=== PATIENT | female | born 2000 | race Hispanic/Latino ===

== ENCOUNTER 2018-12-17 20:45 | Emergency (ER) | payer MEDICAID, OTHER ==
[2018-12-17 21:13] LABS: APPEARANCE,URINE Clear (CLEAR); BILIRUBIN,URINE Negative (NEGATIVE); COLOR,URINE Yellow (YELLOW); GLUCOSE, URINE (UA) >=1000 mg/dL (NEGATIVE); KETONES,URINE Negative (NEGATIVE); LEUKOCYTE ESTERASE ,URINE Moderate (NEGATIVE); NITRATE,URINE Negative (NEGATIVE); OCCULT BLOOD,URINE Trace (NEGATIVE); PROTEIN,URINE Negative (NEGATIVE)
[2018-12-17 21:16] LABS: HCG,QUAL RESULT NEGATIVE (NEGATIVE)
[2018-12-17 21:27] LABS: BACTERIA,URINE Few /HPF (None Seen)
[2018-12-17 21:28] LABS: SQUAMOUS EPITHELIAL CELL,UR Few /HPF (0-2)
[2018-12-17 21:37] LABS: BASOPHILS % (AUTO) 0.3 % (0.0-5.0); EOSINOPHILS % (AUTO) 1.3 % (0.0-8.0); HEMATOCRIT 38.9 % (36-48); LYMPHOCYTES % (AUTO) 25.7 % (21.0-51.0); MEAN CORPUSCULAR HEMOGLOBIN 24.6 pg (27.0-33.0); MEAN CORPUSCULAR HGB CONC 32.9 g/dL (32.0-36.0); MEAN CORPUSCULAR VOLUME 74.8 fL (80-100); MONOCYTES % (AUTO) 4.2 % (3.0-13.0); NEUTROPHILS % (AUTO) 68.5 % (40.0-77.0); PLATELET COUNT (AUTO) 164 K/uL (130-400); RED CELL DISTRIBUTION WIDTH 14.8 % (11.0-15.5); WHITE BLOOD COUNT (AUTO) 9.5 K/uL (4.8-10.8)
[2018-12-17 22:01] LABS: ALBUMIN 3.3 g/dL (3.5-5.0); BILIRUBIN,DIRECT 0.1 mg/dL (0.0-0.3); BILIRUBIN,TOTAL 0.3 mg/dL (0.2-1.0); TOTAL PROTEIN, SERUM 7.4 g/dL (6.0-8.3)
== END 2018-12-17 23:48 | disposition home or self-care (01) ==
LOC: EDH 20:45
DX: E11.65 Type 2 diabetes mellitus with hyperglycemia (principal); K76.0 Fatty (change of) liver, not elsewhere classified; R93.2 Abnormal findings on diagnostic imaging of liver and biliary tract; R94.5 Abnormal results of liver function studies
CPT/HCPCS: 36415; 76705; 80048; 80076; 81001; 81025; 85025

== ENCOUNTER 2023-10-19 12:06 | Emergency (ER) | payer OTHER ==
[~2023-10-19] VITALS: Ht 170.2 cm; Wt 112.5 kg
[2023-10-19 13:16] LABS: BASOPHILS # (AUTO) 0.03 K/uL (0.00-0.20); BASOPHILS % (AUTO) 0.3 % (0.0-5.0); EOSINOPHILS # (AUTO) 0.04 K/uL (0.00-0.70); EOSINOPHILS % (AUTO) 0.4 % (0.0-8.0); HEMATOCRIT 36.3 % (36-48); IMMATURE GRANULOCYTE ABSOLUTE 0.04 K/uL (0-1); LYMPHOCYTES # (AUTO) 1.8 K/uL (1.0-4.8); LYMPHOCYTES % (AUTO) 16.3 % (21.0-51.0); MEAN CORPUSCULAR HEMOGLOBIN 21.2 pg (27.0-33.0); MEAN CORPUSCULAR HGB CONC 30.6 g/dL (32.0-36.0); MEAN CORPUSCULAR VOLUME 69.3 fL (79-99); MONOCYTES # (AUTO) 0.5 K/uL (0.1-1.0); MONOCYTES % (AUTO) 4.3 % (3.0-13.0); NEUTROPHILS # (AUTO) 8.5 K/uL (1.8-7.7); NEUTROPHILS % (AUTO) 78.3 % (40.0-77.0); PLATELET COUNT (AUTO) 300 K/uL (130-400); RED BLOOD CELL COUNT(AUTO) 5.24 MIL/uL (4.00-5.50); RED CELL DISTRIBUTION WIDTH 16.2 % (11.0-15.5); WHITE BLOOD COUNT (AUTO) 10.8 K/uL (4.8-10.8)
[2023-10-19 13:50] LABS: ALBUMIN 3.5 g/dL (3.5-5.0); BILIRUBIN,TOTAL 0.2 mg/dL (0.2-1.0); CREATININE 0.8 mg/dL (0.5-1.5); TOTAL PROTEIN, SERUM 7.9 g/dL (6.0-8.3)
[2023-10-19 15:34] LABS: APPEARANCE,URINE CLOUDY (CLEAR); BILIRUBIN,URINE NEGATIVE (NEGATIVE); COLOR,URINE COLORLESS (YELLOW); GLUCOSE, URINE (UA) >=1000 mg/dL (NEGATIVE); KETONES,URINE NEGATIVE (NEGATIVE); LEUKOCYTE ESTERASE ,URINE NEGATIVE Leu/uL (NEGATIVE); NITRATE,URINE NEGATIVE (NEGATIVE); OCCULT BLOOD,URINE LARGE (NEGATIVE); PH,URINE 5.5 (5.0-8.0); PROTEIN,URINE NEGATIVE (NEGATIVE); UROBILINOGEN,URINE 0.2 mg/dL (0.2-1.0)
[2023-10-19 15:39] LABS: MUCUS,URINE RARE LPF (None Seen); RBC,URINE TNTC /HPF (0-1); SQUAMOUS EPITHELIAL CELL,UR FEW /HPF (0-2); WBC,URINE 26-50 /HPF (0-1)
[2023-10-19] MEDS ORDERED: CEPH500B PO (17:10)
[2023-10-19] MEDS: CEFTRIAXONE 1G VIAL IM ONE (17:41)
[2023-10-19 18:22] VITALS: BP 126/74; PULSE 74; RESP 16; O2SAT 98
== END 2023-10-19 18:07 | disposition home or self-care (01) ==
LOC: EDH 12:06
DX: N30.91 Cystitis, unspecified with hematuria (principal); I10 Essential (primary) hypertension; E11.9 Type 2 diabetes mellitus without complications; Z98.890 Other specified postprocedural states
CPT/HCPCS: 99283; 80053; 85025; 87088; 81001; 81025; 36415; 96372; J0696

== ENCOUNTER 2024-08-13 07:51 | Day surgery (SDC) | payer OTHER ==
[2024-08-09 12:33] LABS: BASOPHILS # (AUTO) 0.04 K/uL (0.00-0.20); BASOPHILS % (AUTO) 0.4 % (0.0-5.0); EOSINOPHILS # (AUTO) 0.13 K/uL (0.00-0.70); EOSINOPHILS % (AUTO) 1.4 % (0.0-8.0); HEMATOCRIT 40.1 % (36-48); IMMATURE GRANULOCYTE ABSOLUTE 0.03 K/uL (0-1); LYMPHOCYTES # (AUTO) 2.6 K/uL (1.0-4.8); LYMPHOCYTES % (AUTO) 28.9 % (21.0-51.0); MEAN CORPUSCULAR HEMOGLOBIN 22.9 pg (27.0-33.0); MEAN CORPUSCULAR HGB CONC 31.2 g/dL (32.0-36.0); MEAN CORPUSCULAR VOLUME 73.3 fL (79-99); MONOCYTES # (AUTO) 0.5 K/uL (0.1-1.0); NEUTROPHILS # (AUTO) 5.7 K/uL (1.8-7.7); PLATELET COUNT (AUTO) 254 K/uL (130-400); RED BLOOD CELL COUNT(AUTO) 5.47 MIL/uL (4.00-5.50); RED CELL DISTRIBUTION WIDTH 15.7 % (11.0-15.5)
[2024-08-09 13:00] VITALS: BP 121/62; PULSE 85; RESP 18; TEMP 98.4
[~2024-08-13] VITALS: Ht 170.2 cm; Wt 112.9 kg
[2024-08-13] VITALS (13 sets, daily range): BP systolic 101–110; BP diastolic 52–63; PULSE 61–75; RESP 15–18; TEMP 97.5–98
[~2024-08-13 07:51] MED LIST: DOCU-280 PO; EMPA1TAB21 PO; ERGO500093 PO; IRON PO; LISI20TA24 PO; TIRZ10PE SQ; VIT C PO
[2024-08-13] MEDS ORDERED: LIDOCAINE PF 100MG/5ML (2%) SYRINGE 5ML ONE (08:31)
[2024-08-13] MEDS ORDERED: rocuRONium bROMide 10MG/1ML 5ML VL ONE (08:32)
[2024-08-13] MEDS ORDERED: FENTanyl CITRate PF 50 MCG/1 ML 2ML VIAL ONE (08:32)
[2024-08-13] MEDS ORDERED: MIDAZOLAM HCL 1 MG/ML 2ML VIAL ONE (08:32)
[2024-08-13] MEDS ORDERED: proPOFol 10 MG/ML 20ML VIAL IV ONE (08:32)
[2024-08-13] MEDS ORDERED: NEOSTIGMINE METHYLSULFATE 1MG/ML IV ONE (08:35)
[2024-08-13] MEDS ORDERED: ondanSETRON 4MG INJ ONE (08:35)
[2024-08-13] MEDS ORDERED: dexaMETHasone SOD PHOSPHATE 4 MG/ML 1ML VIAL ONE (08:35)
[2024-08-13] MEDS ORDERED: GLYCOPYRROLATE 0.2 MG/ML 5 ML VIAL ONE (08:35)
[2024-08-13] MEDS: ceFAZolin SODIUM 1 GM VIAL ONE (09:25)
[2024-08-13] MEDS: ceFAZolin SODIUM 2 GM VIAL ONE (09:25)
[2024-08-13] MEDS: 0.9%NACL 1000ML 1,000 ML IV ONE (09:26)
[2024-08-13] MEDS ORDERED: NORE0.3548 PO (09:29)
[2024-08-13] MEDS ORDERED: OMEG100033 PO (09:29)
[2024-08-13 09:33] LABS: CREATININE 0.8 mg/dL (0.5-1.0); POTASSIUM 3.6 mmol/L (3.5-5.1)
[2024-08-13] MEDS ORDERED: ketOROlac 30MG VIAL (30MG/ML) ONE (10:34)
[2024-08-13] MEDS: MEPERIDINE-PF 25 MG/ML SYG ONE (10:49)
[2024-08-13] MEDS ORDERED: IBUP-2088 PO (11:37)
--- NOTE | 2024-08-13 11:42 | OP ---
DATE OF PROCEDURE: 08/13/2024 PREOPERATIVE DIAGNOSES: * Menorrhagia. * Thickened endometrium. POSTOPERATIVE DIAGNOSES: * Menorrhagia. * Thickened endometrium. PROCEDURE: D and C with hysteroscopy. SURGEON: Simone Ferrera MD ANESTHESIA: General. COUNTS: Complete. COMPLICATIONS: None. DRAINS: None. SPECIMENS: Endometrial curettings. ESTIMATED BLOOD LOSS: Minimal. FINDINGS: * Examination under anesthesia revealed an external genitalia and vagina that were normal. The cervix was grossly normal as well. The uterus was retroflexed. No active bleeding today. * Hysteroscopic examination of the uterine cavity revealed it to be slightly enlarged, but regular in shape and contour. No polyps or fibroids. DESCRIPTION OF PROCEDURE: Under general anesthesia, the patient was scrubbed and draped in the usual dorsal lithotomy position. A weighted speculum was placed in the vagina and the cervix secured with tenaculum. The uterus was sounded to 10.5 cm. After minimal dilation, I was able to introduce the hysteroscope revealing the above described findings. At this point, the scope was removed and a sharp curettage performed yielding a scant amount of tissue, which was forwarded to pathology. No bleeding per the os upon completion of the case. The patient tolerated the procedure well without evidence of any complications. She was transferred to recovery following extubation. TID: [id number] RECEIPT: [id number]
--- NOTE | 2024-08-13 11:43 | NUR ---
FEMININE PAD WITH SCANT BLOOD, ABOUT 1 CC, WITNESSED BY PRIMARY NURSE AND MACKENZIE PEOPLES
== END 2024-08-13 11:52 | disposition home or self-care (01) ==
LOC: DAH 07:51
PROVIDERS: ATTEND Obstetrics & Gynecology
DX: N92.0 Excessive and frequent menstruation with regular cycle (principal); C54.1 Malignant neoplasm of endometrium; N83.201 Unspecified ovarian cyst, right side; I10 Essential (primary) hypertension; E11.9 Type 2 diabetes mellitus without complications; E66.9 Obesity, unspecified; Z68.39 Body mass index [BMI] 39.0-39.9, adult; Z82.49 Family history of ischemic heart disease and other diseases of the circulatory system; Z83.3 Family history of diabetes mellitus; Z82.3 Family history of stroke; Z79.899 Other long term (current) drug therapy; Z98.890 Other specified postprocedural states
CPT/HCPCS: 58558; 84703; 85025; 86850 ×2; 86900 ×2; 86901 ×2; 36415 ×2; 80048; 82948 ×2; 81025; 88305; J1100; A4600; A4663; J7030 ×2; A4351; J3010; J0690 ×2; J3490 ×2; J2003; J2250; J2704; J2405; J1885; J2710; J2175; A4930; A4215; A4223; A4213; A4222; A4221

== ENCOUNTER 2025-03-21 17:17 | Inpatient (IN) | payer OTHER ==
[~2025-03-21] VITALS: Ht 170.2 cm; Wt 110.3 kg
[~2025-03-21 17:17] MED LIST changes: +IBUP-2829 PO; +NORE0.3548 PO; +OMEG100033 PO
[2025-03-21 18:53] LABS: IMMATURE GRANULOCYTE ABSOLUTE 0.06 K/uL (0-1); NUCLEATED RED BLOOD CELLS 0.0 % (0.0-0.19); PLATELET COUNT (AUTO) 215 K/uL (130-400); RED BLOOD CELL COUNT(AUTO) 4.88 MIL/uL (4.00-5.50); RED CELL DISTRIBUTION WIDTH 17.3 % (11.0-15.5); WHITE BLOOD COUNT (AUTO) 11.8 K/uL (4.8-10.8)
[2025-03-21 19:02] LABS: HCG,QUALITATIVE URINE NEGATIVE (NEGATIVE)
[2025-03-21 19:07] LABS: CREATININE 0.7 mg/dL (0.5-1.0); GLOMERULAR FILTR. RATE CALC 121.0 mL/min (>90); GLUCOSE,RANDOM 107.0 mg/dL (70-105); SODIUM SERUM 136.0 mmol/L (136-145); UREA NITROGEN, BLOOD 14.0 mg/dL (7-18)
[2025-03-21 19:08] LABS: APPEARANCE,URINE CLEAR (CLEAR); GLUCOSE, URINE (UA) >=1000 mg/dL (NEGATIVE); LEUKOCYTE ESTERASE ,URINE 25 Leu/uL (NEGATIVE); NITRATE,URINE NEGATIVE (NEGATIVE); OCCULT BLOOD,URINE +- (TRACE) (NEGATIVE); SQUAMOUS EPITHELIAL CELL,UR FEW /HPF (0-2); YEAST,URINE BUDDING FEW /HPF (None Seen)
[2025-03-21 19:11] LABS: ASPARTATE AMINOTRANSFERASE 11.0 U/L (10-37); TOTAL PROTEIN, SERUM 7.6 g/dL (6.0-8.3)
--- NOTE | 2025-03-21 21:08 | ERN ---
General Chief Complaint: Abdominal Pain Stated Complaint: RLQ PAIN Time Seen by MD: 17:21 Time Seen by Midlevel: 17:21 Source: patient History of Present Illness Initial Comments 25-year-old female who presents to the emergency department due to right lower abdominal pain onset one week. [facility] seen [facility] and was diagnosed with a UTI and abdominal mass. She was initiated on antibiotics however states she does feel improvement. Patient has an MRI scheduled for tomorrow. However patient states the pain is worsening. PMHx DM, HTN, endometrial cancer Allergies: Coded Allergies: No Known Drug Allergies (Verified Allergy, 02/19/12) Home Meds Reported Medications Ibuprofen (Motrin/Advil) 600 Mg Tab, 1 TAB PO TID for pain for 10 Days, #30 TAB 0 Refills with food 08/13/24 Norethindrone (Mercedes) 0.35 Mg Tablet, 1 TAB PO DAILY for 28 Days, #28 TAB 0 Refills 08/13/24 [place]-3/Dha/Epa/Fish Oil (Fish Oil 1,000 mg Softgel) 1,000 Mg (120 Mg-180 Mg) Capsule, 1 CAP PO BID for 30 Days, #60 CAP 0 Refills 08/13/24 Docusate Sodium (Stool Softener) 100 Mg Capsule, 1 CAP PO DAILY for 28 Days, #28 CAP 0 Refills 08/09/24 [Iron] No Conflict Check, 1 TAB PO DAILY 08/09/24 [Vit C] No Conflict Check, 1 TAB PO DAILY 08/09/24 Ergocalciferol (Vitamin D2) (Vitamin D2) 1,250 Mcg (87906 Unit) Capsule, 1 CAP P O QWEEK 08/09/24 Tirzepatide (Mounjaro) 10 Mg/0.5 Ml Pen.injctr, 10 MG SQ QWEEK 08/09/24 Lisinopril (Lisinopril) 20 Mg Tablet, 1 TAB PO DAILY 08/09/24 Empagliflozin/Metformin HCl (Synjardy Xr 12.5-1,000 mg Tab) 12.5 Mg-1,000 Mg Tab.bp.24h, 1 TAB PO BID 08/09/24 Past Medical History Past Medical History: Cancer, Diabetes-Type II, Hypertension Medical History Other: ENDOMETRIAL CA Past Surgical History: Other Surgical History Other: left ankle, OVARIAN CYST, D&C , UTERINE ABLATION Social History Social History: Negative, Lives with family Female( History) LMP: Oct 23, 2024 ROS Dictation Constitutional: Negative for fever,chills, and weight loss Eyes: Negative for injury, pain,redness, and discharge ENT: Negative for injury,pain or swelling Cardiovascular: Negative for chest pain, palpitations, and edema Respiratory: Negative for shortness of breath, cough, and wheezing, Abdomen/GI: Positive for abdominal pain Negative for nausea, vomiting, diarrhea, and constipation Back: Positive right flank pain Negative for injury and pain : Positive for dysuria Negative for bleeding or discharge MS/Extremity: Negative for injury and deformity Skin: Negative for rash, and discoloration Neuro: Negative for headache, weakness, numbness, tingling, and seizure Psych: Negative for suicide ideation, homicidal ideation, and hallucinations Physical Exam Physical Exam Dictation General: awake, alert, no acute distress Head/Face: Normocephalic, atraumatic Eyes: PERRL, EOMI, normal conjunctiva ENT: oral cavity clear, oral mucosa moist Neck: Supple, normal range of motion Cardiovascular: RRR, normal S1/S2 Respiratory: CTAB, no respiratory distress Abdomen: Soft, right lower quadrant tenderness, non-distended, normal bowel sounds, no guarding or rebound. Skin: Warm, dry, normal turgor, no rash MS/Extremity: Pulses equal, no cyanosis, neurovascular intact, FROM Neuro: COAx4, GCS 15, strength 5/5, CN 2-12 intact, normal cerebellar exam, normal gait Psych: Normal behavior, mood, and affect normal Results Laboratory and Microbiology Lab and Micro Result Laboratory Tests Test 03/21/25 18:42 03/21/25 18:44 White Blood Count 11.8 K/uL (4.8-10.8) H Red Blood Count 4.88 MIL/uL (4.00-5.50) Hemoglobin 12.1 g/dL (12.0-16.0) Hematocrit 36.9 % (36-48) Mean Corpuscular Volume 75.6 fL (79-99) L Mean Corpuscular Hemoglobin 24.8 pg (27.0-33.0) L Mean Corpuscular Hemoglobin Concent 32.8 g/dL (32.0-36.0) Red Cell Distribution Width 17.3 % (11.0-15.5) H Platelet Count 215 K/uL (130-400) Mean Platelet Volume 11.4 fL (7.5-10.5) H Immature Granulocyte % (Auto) 0.5 % (0-1) Neutrophils (%) (Auto) 66.1 % (40.0-77.0) Lymphocytes (%) (Auto) 23.2 % (21.0-51.0) Monocytes (%) (Auto) 7.9 % (3.0-13.0) Eosinophils (%) (Auto) 2.0 % (0.0-8.0) Basophils (%) (Auto) 0.3 % (0.0-5.0) Neutrophils # (Auto) 7.8 K/uL (1.8-7.7) H Lymphocytes # (Auto) 2.7 K/uL (1.0-4.8) Monocytes # (Auto) 0.9 K/uL (0.1-1.0) Eosinophils # (Auto) 0.23 K/uL (0.00-0.70) Basophils # (Auto) 0.03 K/uL (0.00-0.20) Absolute Immature Granulocyte (auto 0.06 K/uL (0-1) Nucleated Red Blood Cells 0.0 % (0.0-0.19) Red Blood Cell Morphology See comments Sodium Level 136 mmol/L (136-145) Potassium Level 3.9 mmol/L (3.5-5.1) Chloride Level 102 mmol/L (101-111) Carbon Dioxide Level 23 mmol/L (21-32) Blood Urea Nitrogen 14 mg/dL (7-18) Creatinine 0.7 mg/dL (0.5-1.0) Glomerular Filtration Rate Calc 121 mL/min (>90) Random Glucose 107 mg/dL (70-105) H Total Calcium 9.2 mg/dL (8.5-10.1) Total Bilirubin 0.8 mg/dL (0.2-1.0) Direct Bilirubin 0.2 mg/dL (0.0-0.3) Aspartate Amino Transf (AST/SGOT) 11 U/L (10-37) Alanine Aminotransferase (ALT/SGPT) 19 U/L (12-78) Alkaline Phosphatase 80 U/L (50-136) Total Protein 7.6 g/dL (6.0-8.3) Albumin 3.5 g/dL (3.5-5.0) Lipase 33 U/L (16-77) Urine Color YELLOW (YELLOW) Urine Appearance CLEAR (CLEAR) Urine pH 6.0 (5.0-8.0) Urine Specific [place] OVER (1.001-1.031) Urine Protein NEGATIVE mg/dL (NEGATIVE) Urine Glucose (UA) >=1000 mg/dL (NEGATIVE) H Urine Ketones NEGATIVE mg/dL (NEGATIVE) Urine Occult Blood +- (TRACE) (NEGATIVE) H Urine Nitrate NEGATIVE (NEGATIVE) Urine Bilirubin NEGATIVE mg/dL (NEGATIVE) Urine Urobilinogen 0.2 mg/dL (0.2-1.0) Urine Leukocyte Esterase 25 Rubens/uL (NEGATIVE) H Urine RBC 11-25 /HPF (0-1) H Urine WBC 11-25 /HPF (0-1) H Urine Squamous Epithelial Cells FEW /HPF (0-2) Urine Bacteria RARE /HPF (None Seen) Urine Yeast FEW /HPF (None Seen) Urine HCG, Qualitative NEGATIVE (NEGATIVE) Labs Reviewed?: Yes EKG/XRAY/US/CT/MRI CT Scan Comment CLINICAL HISTORY: Right lower quadrant pain. TECHNIQUE: Thin collimated axial CT images of the abdomen and pelvis were obtained, with sagittal and coronal reformatted images also submitted. A CT scan is done according to ALARA (As Low As Reasonably Achievable). CONTRAST: Omnipaque 350. COMPARISON: None. FINDINGS: Unremarkable visualized lung parenchyma. No focal abnormality within the liver, gallbladder, pancreas, spleen, adrenals, or kidneys. Mildly dilated and fluid-filled distal small bowel loops with adjacent mesenteric edema and trace free fluid in the right lower quadrant of the abdomen, with a maximum diameter of 2.6 cm. The appendix is normal. There is no abnormality within the urinary bladder. The uterus appears unremarkable. Complex cystic mass in the right adnexa measures 10.4 x 7 x 6.6 cm. Complex cystic mass in the left adnexa measuring 13 x 8.4 x 7 cm. Neither cystic masses are visualized separately from the other. Abdominal and pelvic vessels are patent. No lymphadenopathy. There is no acute osseous abnormality. IMPRESSIONS: A complex cystic mass in the bilateral adnexa, suggesting a bilateral ovarian cystic mass. Recommend ultrasound of the pelvis for further evaluation. Mildly dilated and fluid-filled distal small bowel loops with adjacent mesenteric edema and trace free fluid in the right lower quadrant of the abdomen, with a maximum diameter of 2.6 cm. Concerning acute enteritis, the possibility of early changes of bowel obstruction cannot be excluded. Recommend a barium follow-through study if there is a clinical concern of bowel obstruction. No acute appendicitis is evident. /Boyce DICTATED BY: RAS SINGH Jr., MD DATE: 03/22/2551 MDM MDM: Differential diagnosis: UTI, pyelonephritis, Rationale: 25-year-old female who presents to the emergency department due to r ight lower abdominal pain onset one week. [facility] and was diagnosed with a UTI and abdominal mass. She was initiated on antibiotics however states she does feel improvement. Patient has an MRI scheduled for tomorrow. However patient states the pain is worsening. PMHx DM, HTN, endometrial cancer Last bowel movement was this morning. ED course delayed due to CT scan of abdomen and pelvis. Labs obtained show leukocytes WBCs 11.8, chemistries nonspecific, UA shows a urinary tract infection with 25 leukocyte esterase and 11-[address] abdomen and pelvis shows complex cystic mass bilateral at Neck for suggesting bilateral ovarian cystic mass, dilated and fluid-filled small bowel loops with mesenteric edema, trace OB fluid in the right lower quadrant, acute enteritis, possibility of early changes bowel obstruction. Ketorolac, morphine, IV fluids, Rocephin administered in the ED. Patient was educated on findings, diagnosis, decision for admission. Patient verbalized understanding and agrees with admission. Case discussed with hospitalist who accepted admission. Previous outside records reviewed: Old ER visits. Risk of complication and/or morbidity or mortality of patient management: None Medications-Per medication reconciliation Need for hospitalization: Patient does meet criteria for hospitalization. Need for emergency major/minor surgery: No There are no social concerns with this patient. Prescription drug management Prescriptions will include symptomatic care Patient's prior external medical records from other ER visits were reviewed by me as indicated. Prior testing and results from previous visits were reviewed. Prior tests were taken into account with medical decision making and resource utilization, independent historian/historians were used to obtain complete medical history. I independently interpreted the test that were performed, results were reviewed by me and considered findings on radiology if ordered. Medical management and examination interpretation discussions were had by me with other qualified healthcare professionals as indicated for the patient's care. ED Course Orders Procedure Category Date Status Time Cbc With Differential LAB 03/21/25 Complete 17:25 Basic Metabolic Panel LAB 03/21/25 Complete 17:25 Urinalysis LAB 03/21/25 Complete W/Microscopic 17:25 ,Urine Test LAB 03/21/25 Complete 17:25 Hepatic Function Panel LAB 03/21/25 Complete 17:25 Lipase LAB 03/21/25 Complete 17:25 Ct Abdomen/Pelvis CT 03/21/25 Resulted W/Contrast 18:58 Culture Urine WANG 03/21/25 In Process 19:09 Ketorolac PHA 03/21/25 Complete Tromethamine 15mg/Ml 20:00 Iohexol (Omnipaque) PHA 03/21/25 Complete 22:13 Ceftriaxone 1g Vial PHA 03/21/25 Complete (Rocephine 1g Inj) 23:30 Morphine 4mg Syg PHA 03/22/25 Complete (Morphine 4mg Syg) 00:30 0.9%Nacl 1000ml (Ns PHA 03/22/25 Complete 1000ml) 01:00 Us Pelvic Non-Ob Comp US 03/22/25 Taken 00:59 Current Medications Medications (Trade) Dose Ordered Sig/Carlos Route PRN Reason Start Time Stop Time Status Last Admin Dose Admin Ceftriaxone Sodium (ROCEphine 1G INJ) 1 gm ONCE ONCE IVPB 03/21/25 23:30 03/21/25 23:31 DC 03/21/25 23:35 Iohexol (Omnipaque) 35,000 mg STK-MED ONCE IV 03/21/25 22:13 03/21/25 22:13 DC Ketorolac Tromethamine (toRADol) 15 mg ONCE IM 03/21/25 20:00 03/21/25 23:59 DC 03/21/25 22:02 Morphine Sulfate (morPHINE 4MG SYG) 4 mg ONCE ONCE IM 03/22/25 00:30 03/22/25 00:31 DC 03/22/25 00:37 Sodium Chloride 1,000 ml @ 0 mls/hr ONCE ONCE IV 03/22/25 01:00 03/22/25 01:01 DC 03/22/25 01:23 Vital Signs Date Time Temp Pulse Resp B/P (MAP) Pulse Ox O2 Delivery O2 Flow Rate FiO2 03/21/25 22:14 98.8 98 20 132/75 98 Room Air* 0 21 03/21/25 17:20 98.4 99 16 129/71 99 Room Air 0 DX & DISP Disposition: Inpatient Departure Impression: Primary Impression: Enteritis Additional Impressions: UTI (urinary tract infection), Adnexal mass, Leukocy tosis Condition: Stable Referrals: SAMANTHA ALVAREZ (PCP) I performed the substantive portion of the visit. I have reviewed and personally made and approve the management plan that is documented in the notes by myself or the OBEY. I acknowledge full responsibility for the patient's management plan. NAVID VELASCO Mar 21, 2025 21:08
--- NOTE | 2025-03-21 21:58 | NUR ---
ASSUMED PATIENT CARE
[2025-03-21] MEDS ORDERED: IOHEXOL 350 MG/ML 100ML INFUS..BTL IV ONE (22:13)
--- NOTE | 2025-03-21 23:53 | HMCIMG ---
EXAM: CT Abdomen and Pelvis with IV contrast. CLINICAL HISTORY: Right lower quadrant pain. TECHNIQUE: Thin collimated axial CT images of the abdomen and pelvis were obtained, with sagittal and coronal reformatted images also submitted. A CT scan is done according to ALARA (As Low As Reasonably Achievable). CONTRAST: Omnipaque 350. COMPARISON: None. FINDINGS: Unremarkable visualized lung parenchyma. No focal abnormality within the liver, gallbladder, pancreas, spleen, adrenals, or kidneys. Mildly dilated and fluid-filled distal small bowel loops with adjacent mesenteric edema and trace free fluid in the right lower quadrant of the abdomen, with a maximum diameter of 2.6 cm. The appendix is normal. There is no abnormality within the urinary bladder. The uterus appears unremarkable. Complex cystic mass in the right adnexa measures 10.4 x 7 x 6.6 cm. Complex cystic mass in the left adnexa measuring 13 x 8.4 x 7 cm. Neither cystic masses are visualized separately from the other. Abdominal and pelvic vessels are patent. No lymphadenopathy. There is no acute osseous abnormality. IMPRESSIONS: A complex cystic mass in the bilateral adnexa, suggesting a bilateral ovarian cystic mass. Recommend ultrasound of the pelvis for further evaluation. Mildly dilated and fluid-filled distal small bowel loops with adjacent mesenteric edema and trace free fluid in the right lower quadrant of the abdomen, with a maximum diameter of 2.6 cm. Concerning acute enteritis, the possibility of early changes of bowel obstruction cannot be excluded. Recommend a barium follow-through study if there is a clinical concern of bowel obstruction. No acute appendicitis is evident. /Alba
[2025-03-22] VITALS (8 sets, daily range): BP systolic 99–131; BP diastolic 40–74; PULSE 101–130; RESP 16–20; TEMP 98.1–99; O2SAT 93–97
[2025-03-22] MEDS: 0.9%NACL 1000ML 1,000 ML IV ONE (01:23)
--- NOTE | 2025-03-22 01:47 | HP ---
[facility] HISTORY AND PHYSICAL Date of Service: Mar 22, 2025 Time of Service: 01:46 HISTORY OF PRESENT ILLNESS: Ms. Nair is a 25-year-old female with a history of DM, HTN, endometrial cancer who [place] [facility] [place] evaluation of right upper quadra nt abdominal pain onset one week that worsened on 03/21/2025. The patient was seen at [facility] ER and was diagnosed with a UTI and abdominal mass. The patient was started on antibiotics, but reports she does not feel any improvement. The patient has a pending MRI scheduled on 03/22/2025 for evaluation of a mass. The patient reports that her OBGYN was Dr. Simone Ferrera, but due to the findings of endometrial cancer she was sent to Dr. Abdirahman Cox, gynecology oncologist in [facility]. In ED the patient was administered Toradol 15 mg IM, Rocephin 1 g, morphine 4 mg IM, sodium 1 L. ED provider request patient be admitted with the diagnosis of enteritis, UTI. Remarkable labs: WBC 11.8, glucose 107. UA: positive for glucose >1000, leukocyte esterase, and trace of blood. CT abdomen and pelvis with contrast: A complex cystic mass in the bilateral adnexa, suggesting a bilateral ovarian cystic mass. Recommend ultrasound of the pelvis for further evaluation. Mildly dilated and fluid-filled distal small bowel loops with adjacent mesenteric edema and trace free fluid in the right lower quadrant of the abdomen, with a maximum diameter of 2.6 cm. Concerning acute enteritis, the possibility of early changes of bowel obstruction cannot be excluded. No acute appendicitis is evident. Pelvis US: Complex solid cystic structures in the bilateral adnexa with preserved vascularity. No ovarian torsion is evident. I assessed the patient at bedside in room 315. Mother was at bedside. The patient appeared comfortable, breathing was even, unlabored, in no distress. The patient was coming from the restroom, reports she has had a couple bowel movements. She has been taking Colace. I informed patient and mother of labs, diagnostics, and plan of care. They verbalized understanding and are in agreement with the plan. Plan and assessment are listed below. REVIEW OF SYSTEMS 12-point ROS reviewed with the patient. All pertinent positives mentioned above. Otherwise negative, noncontributory, non-pertinent. PAST MEDICAL HISTORY: As mentioned above PAST SURGICAL HISTORY: Left ankle surgery, ovarian cyst, [facility], uterine ablation PAST SOCIAL HISTORY: Denied alcohol, tobacco, illicit drug use FAMILY HISTORY: Grandma has history of breast cancer Other grandma has liver cancer Coded Allergies: No Known Drug Allergies (Verified Allergy, 02/19/12) PHYSICAL EXAM GENERAL APPEARANCE: The patient is awake, alert, and oriented, in no acute cardiopulmonary distress. NEUROLOGICAL: Cranial nerves II-XII grossly intact. Motor is 5/5 in bilateral upper and lower extremities proximal to distal. No sensory deficits. HEENT: Face is symmetric. Pupils are equal and reactive. Extraocular movements are intact. NECK: Supple. No JVD. No thyromegaly. No submental, submandibular, pre- /postauricular, occipital or supraclavicular lymphadenopathy. CHEST: Normal chest expansion. No Telemetry. LUNGS: Absence of any rales, rhonchi or any wheezing. CARDIOVASCULAR: Regular. S1 and S2 normal. No appreciable rubs, murmurs or gallops. ABDOMEN: Soft, nontender, obese, and nondistended. There is no rebound, voluntary guarding, or rigidity. : Deferred. No Bonner. EXTREMITIES: Non-edematous and not cyanotic. No clubbing. Good capillary refill. SKIN: No skin breakdown. Vital Sign (Last 24 Hours) 03/21/25 22:14 Temp 98.8 Pulse 98 Resp 20 B/P (MAP) 132/75 Pulse Ox 98 O2 Delivery Room Air* O2 Flow Rate 0 FiO2 21 LABS: Laboratory: Test 03/21/25 18:44 03/21/25 18:42 Range/Units Urine Color YELLOW YELLOW Urine Appearance CLEAR CLEAR Urine pH 6.0 5.0-8.0 Urine Specific [place] OVER 1.001-1.031 Urine Protein NEGATIVE NEGATIVE mg/dL Urine Glucose (UA) >=1000 H NEGATIVE mg/dL Urine Ketones NEGATIVE NEGATIVE mg/dL Urine Occult Blood +- (TRACE) H NEGATIVE Urine Nitrate NEGATIVE NEGATIVE Urine Bilirubin NEGATIVE NEGATIVE mg/dL Urine Urobilinogen 0.2 0.2-1.0 mg/dL Urine Leukocyte Esterase 25 H NEGATIVE Rubens/uL Urine RBC 11-25 H 0-1 /HPF Urine WBC 11-25 H 0-1 /HPF Urine Squamous Epithelial Cells FEW 0-2 /HPF Urine Bacteria RARE None Seen /HPF Urine Yeast FEW None Seen /HPF Urine HCG, Qualitative NEGATIVE NEGATIVE White Blood Count 11.8 H 4.8-10.8 K/uL Red Blood Count 4.88 4.00-5.50 MIL/uL Hemoglobin 12.1 12.0-16.0 g/dL Hematocrit 36.9 36-48 % Mean Corpuscular Volume 75.6 L 79-99 fL Mean Corpuscular Hemoglobin 24.8 L 27.0-33.0 pg Mean Corpuscular Hemoglobin Concent 32.8 32.0-36.0 g/dL Red Cell Distribution Width 17.3 H 11.0-15.5 % Platelet Count 215 130-400 K/uL Mean Platelet Volume 11.4 H 7.5-10.5 fL Immature Granulocyte % (Auto) 0.5 0-1 % Neutrophils (%) (Auto) 66.1 40.0-77.0 % Lymphocytes (%) (Auto) 23.2 21.0-51.0 % Monocytes (%) (Auto) 7.9 3.0-13.0 % Eosinophils (%) (Auto) 2.0 0.0-8.0 % Basophils (%) (Auto) 0.3 0.0-5.0 % Neutrophils # (Auto) 7.8 H 1.8-7.7 K/uL Lymphocytes # (Auto) 2.7 1.0-4.8 K/uL Monocytes # (Auto) 0.9 0.1-1.0 K/uL Eosinophils # (Auto) 0.23 0.00-0.70 K/uL Basophils # (Auto) 0.03 0.00-0.20 K/uL Absolute Immature Granulocyte (auto 0.06 0-1 K/uL Nucleated Red Blood Cells 0.0 0.0-0.19 % Red Blood Cell Morphology See comments Sodium Level 136 136-145 mmol/L Potassium Level 3.9 3.5-5.1 mmol/L Chloride Level 102 101-111 mmol/L Carbon Dioxide Level 23 21-32 mmol/L Blood Urea Nitrogen 14 7-18 mg/dL Creatinine 0.7 0.5-1.0 mg/dL Glomerular Filtration Rate Calc 121 >90 mL/min Random Glucose 107 H 70-105 mg/dL Total Calcium 9.2 8.5-10.1 mg/dL Total Bilirubin 0.8 0.2-1.0 mg/dL Direct Bilirubin 0.2 0.0-0.3 mg/dL Aspartate Amino Transf (AST/SGOT) 11 10-37 U/L Alanine Aminotransferase (ALT/SGPT) 19 12-78 U/L Alkaline Phosphatase 80 50-136 U/L Total Protein 7.6 6.0-8.3 g/dL Albumin 3.5 3.5-5.0 g/dL Lipase 33 16-77 U/L Current Medications Medications (Trade) Dose Ordered Sig/Carlos Route PRN Reason Start Time Stop Time Status Last Admin Dose Admin Acetaminophen (TYLenol 325MG TAB) 650 mg Q6H PRN PO FEVER/MILD PAIN LEVEL 1-3 03/22/25 02:00 04/21/25 01:59 UNV Acetaminophen (TYLenol 650MG SUPPOSITORY) 650 mg Q6H PRN RC FEVER / MILD PAIN 1-3 IF NPO 03/22/25 02:00 04/21/25 01:59 UNV Acetaminophen/ Hydrocodone Bitart (NORco 5/325MG) 1 tab Q6H PRN PO MILD PAIN (1-3) 03/22/25 02:00 03/27/25 01:59 UNV Insulin Human Regular (humuLIN R 100 UNIT/ML 3ML) INSULIN SLIDING SCAL... Q12H9 SQ 03/22/25 09:00 04/21/25 08:59 UNV Ketorolac Tromethamine (toRADol) 15 mg ONCE IM 03/21/25 20:00 03/21/25 23:59 DC 03/21/25 22:02 15 MG Labetalol HCl (TRANdate 20MG SYG) 10 mg Q2H PRN IV SBP GREATER THAN 180 03/22/25 02:00 04/21/25 01:59 UNV Lactated Ringer's 1,000 ml @ 100 mls/hr Q10H IV 03/22/25 02:00 04/21/25 01:59 UNV Morphine Sulfate (morPHINE 4MG SYG) 4 mg Q4H PRN IVP SEVERE PAIN (7-10) 03/22/25 02:00 03/29/25 01:59 UNV Ondansetron HCl (zoFRAN 4MG INJ) 4 mg Q6H PRN IVP NAUSEA/VOMITING 03/22/25 02:00 04/21/25 01:59 UNV Piperacillin Sod/ Tazobactam Sod (Zosyn 3.375gm+NS 50ml) 3.375 gm Q8H IVPB 03/22/25 08:00 04/01/25 07:59 UNV Sodium Chloride (NS 50ml) 50 ml AD IV 03/22/25 08:00 04/21/25 07:59 UNV Temazepam (restORIL 15 MG CAP) 15 mg HS PRN PO INSOMNIA/SLEEP 03/22/25 02:00 04/21/25 01:59 UNV DIAGNOSTICS / RADIOLOGY: [ ] ASSESSMENT: Complex solid cystic structures in the bilateral adnexa with preserved vascularity, per sono on 03/21/2025 Acute enteritis, per CT on 03/21/2025 (Mildly dilated and fluid-filled distal small bowel loops with adjacent mesenteric edema and trace free fluid in RLQ of the abdomen, with a maximum diameter of 2.6 cm) Acute complicated cystitis, POA Acute abdominal pain 2/2 above, POA, r/o bowel obstruction Leukocytosis, POA Anemia Diabetes mellitus with hyperglycemia Glucosuria, occult hematuria, per UA on 03/21/2025 Hypertension Endometrial cancer, POA PLAN: -Admit to Medical floor. -Start Zosyn 3.375 q.8 hours. (ED administered Rocephin 1 g) -NPO for now. -LR at 100 mL/ hour. -Obtain MR of abdomen and pelvis with and without contrast. -Ativan 1 mg IV prior to MRI due to claustrophobia. -Follow urine cultures and blood cultures. -P.r.n. medications for pain management, nausea, vomiting, constipation, hypertension, fever. -Reconciled/started home medications: Vitamins, lisinopril. -Hold home medications: Megestrol, Synjardy, Mounjaro and start insulin sliding scale for now. -Glucometer checks AC & HS needed with insulin regular sliding scale coverage as needed. - Monitor renal and liver function. -Monitor electrolytes and treat accordingly PRN. -Monitor respiratory status. -Oxygen therapy as needed. Titrate oxygen prn to keep Spo2>/+=92%. -Blood pressure checks every 4 hours and as needed. -AM labs. -GI and DVT prophylaxis -Further plan/orders per hospitalization course. ADVANCED CARE PLANNING 1. Which of the following were discussed? Hospice Care - No Therapeutic options - Yes Advance Directives - Yes Other discussions - 2. Discussed with who? The patient 3. Voluntary nature of this service was explained to the patient? Yes 4. Amount of time spent - _ critical care time: Over 35 minutes 5. Reviewed by Physician? (if this service was performed by OBEY) Yes ATTESTATION BY PHYSICIAN I reviewed the documentation, medical decision making, and treatment plan as not ed by the OBEY above. I agree with the findings and plan of care. SANDIE PRECIADO [facility] Mar 22, 2025 01:46
[2025-03-22] MEDS ORDERED: DEXTROSE 50%-WATER 50 ML DISP.SYRIN IV PRN (02:00)
[2025-03-22] MEDS ORDERED: HYDROcodone/APAP 5/325 1 TAB TABLET PO PRN (02:00)
[2025-03-22] MEDS ORDERED: MAGNESIUM 2GM PREMIX 50ML 50 ML IV PRN (02:00)
[2025-03-22] MEDS ORDERED: GLUCAGON 1MG KIT 1 MG ML IM PRN (02:00)
[2025-03-22] MEDS: LACTATED RINGERS 1000ML 1,000 ML IV SCH (02:12)
[2025-03-22] MEDS ORDERED: MEGE40TA5 PO (02:27)
[2025-03-22] MEDS ORDERED: VITAD50000 PO (02:27)
--- NOTE | 2025-03-22 03:01 | HMCIMG ---
EXAM: US Pelvis, Complete. CLINICAL HISTORY: Adnexal mass and right lower quadrant pain. History of endometrial cancer with dilatation and curettage in 2024 TECHNIQUE: Transvaginal and transabdominal pelvic ultrasound (complete) with image documentation. COMPARISON: None provided. FINDINGS: The uterus measures 7.9 x 3.6 x 4.1 cm. The endometrial thickness measures up to 7 mm. There is a 10.4 x 7.6 x 9.7 cm complex solid cystic structure with vascularity in the right adnexa. There is a 12.3 x 7.5 x 11.7 cm complex solid cystic structure with vascularity in the left adnexa. No free fluid in the cul-de-sac. IMPRESSION: Complex solid cystic structures in the bilateral adnexa with preserved vascularity. No ovarian torsion is evident. Recommend a contrast-enhanced MRI of the pelvis for further evaluation. /[place]
[2025-03-22] MEDS ORDERED: ALPR-411 PO (04:00)
[2025-03-22 07:19] LABS: NUCLEATED RED BLOOD CELLS 0.0 % (0.0-0.19); PLATELET COUNT (AUTO) 174.0 K/uL (130-400); RED BLOOD CELL COUNT(AUTO) 4.37 MIL/uL (4.00-5.50); RED CELL DISTRIBUTION WIDTH 17.1 % (11.0-15.5); WHITE BLOOD COUNT (AUTO) 8.8 K/uL (4.8-10.8)
[2025-03-22 07:40] LABS: CREATININE 0.6 mg/dL (0.5-1.0); GLOMERULAR FILTR. RATE CALC 126.0 mL/min (>90); GLUCOSE,RANDOM 92.0 mg/dL (70-105); PHOSPHORUS 4.5 mg/dL (2.5-4.9); SODIUM SERUM 135.0 mmol/L (136-145); UREA NITROGEN, BLOOD 9.0 mg/dL (7-18)
[2025-03-22] MEDS ORDERED: ZOSYN 3.375GM +NS 50ML IVPB SCH (08:00)
[2025-03-22] MEDS ORDERED: 0.9%NACL 50ML IV SCH (08:00)
[2025-03-22] MEDS: LISINOPRIL 20 MG TABLET PO SCH (09:00)
[2025-03-22] MEDS: ([Iron] 1 TAB) PO SCH (09:00)
[2025-03-22] MEDS: ZOSYN 3.375GM +NS 50ML IVPB SCH (09:02)
--- NOTE | 2025-03-22 10:40 | NUR ---
DCP:HOME Pt currently lives in an apartment with a roommate. Pt states that she recently moved into her apartment the end of Sep. Pt does not have DME, home health, or provider services. Pt states that she is able to complete ADLs independently. PCP is Citlaly Jerez and uses [facility]. At [place] pt will want to go home and family will assist with transportation. Addendum: 03/22/25 at 1042 by RONY FERNÁNDEZ SS Amended: Links added.
[2025-03-22] MEDS: HYDROcodone/APAP 5/325 1 TAB TABLET PO PRN (15:32)
[2025-03-22] MEDS ORDERED: GADOTERATE MEGLUMINE 10 MMOL/20 ML VIAL IV ONE (17:45)
[2025-03-22] MEDS: HOME MEDICATION 1 EACH PO SCH (19:51)
[2025-03-23 03:51] VITALS: BP 98/45; PULSE 119; RESP 17; TEMP 99.5
[2025-03-23 05:36] LABS: NUCLEATED RED BLOOD CELLS 0.0 % (0.0-0.19); PLATELET COUNT (AUTO) 216.0 K/uL (130-400); RED BLOOD CELL COUNT(AUTO) 4.79 MIL/uL (4.00-5.50); RED CELL DISTRIBUTION WIDTH 16.7 % (11.0-15.5); WHITE BLOOD COUNT (AUTO) 13.1 K/uL (4.8-10.8)
[2025-03-23 05:48] LABS: CREATININE 0.8 mg/dL (0.5-1.0); GLOMERULAR FILTR. RATE CALC 104.0 mL/min (>90); GLUCOSE,RANDOM 126.0 mg/dL (70-105); PHOSPHORUS 4.5 mg/dL (2.5-4.9); SODIUM SERUM 136.0 mmol/L (136-145); UREA NITROGEN, BLOOD 9.0 mg/dL (7-18)
[2025-03-23] MEDS: MAGNESIUM 2GM PREMIX 50ML 50 ML IV SCH (05:55)
[2025-03-23 08:00] VITALS: BP 113/56; PULSE 106; RESP 18; TEMP 98.6; O2SAT 100
[2025-03-23] MEDS: HYDROcodone/APAP 5/325 1 TAB TABLET PO PRN (08:23)
--- NOTE | 2025-03-23 09:28 | PN ---
[facility] PROGRESS NOTE Date of Service: Mar 23, 2025 Time of Service: 09:23 SUBJECTIVE: [ ] Ms. Nair is a 25-year-old female with a history of DM, HTN, endometrial cancer who presented to [facility] ED for evaluation of right upper quadrant abdominal pain onset one week that worsened on 03/21/2025. The patient was seen at [facility] ER and was diagnosed with a UTI and abdominal mass. The patient was started on antibiotics, but reports she does not feel any improvement. The patient has a pending MRI scheduled on 03/22/2025 for evaluation of a mass. The patient reports that her OBGYN was Dr. Simone Ferrera, but due to the findings of endometrial cancer she was sent to Dr. Abdirahman Cox, gynecology oncologist in [facility]. 03/23/2025 patient was seen earlier, patient is fully awake alert oriented x3 patient reports abdominal pain is tolerable very minimal. Pelvis MRI abdomen MRI pending results we will have primary nurse reach out to radiologist's to scan results. Encourage patient out of bed to chair with meals. Otherwise we will continue to follow patient's process REVIEW OF SYSTEMS 12-point ROS reviewed with the patient. All pertinent positives mentioned above. Otherwise negative, noncontributory, non-pertinent. PHYSICAL EXAM GENERAL APPEARANCE: The patient is awake, alert, and oriented, in no acute cardiopulmonary distress. NEUROLOGICAL: Cranial nerves II-XII grossly intact. Motor is 5/5 in bilateral upper and lower extremities proximal to distal. No sensory deficits. HEENT: Face is symmetric. Pupils are equal and reactive. Extraocular movements are intact. NECK: Supple. No JVD. No thyromegaly. No submental, submandibular, pre- /postauricular, occipital or supraclavicular lymphadenopathy. CHEST: Normal chest expansion. No Telemetry. LUNGS: Absence of any rales, rhonchi or any wheezing. CARDIOVASCULAR: Regular. S1 and S2 normal. No appreciable rubs, murmurs or gallops. ABDOMEN: Soft, nontender, obese, and nondistended. There is no rebound, voluntary guarding, or rigidity. : Deferred. No Bonner. EXTREMITIES: Non-edematous and not cyanotic. No clubbing. Good capillary refill. SKIN: No skin breakdown. Vital Signs (last 8hr) Date Time Temp Pulse Resp B/P (MAP) Pulse Ox O2 Delivery O2 Flow Rate FiO2 03/23/25 08:00 98.6 106 18 113/56 100 Room Air 03/23/25 03:51 99.5 119 17 98/45 97 Room Air LABS: Laboratory: Test 03/23/25 05:26 03/23/25 04:55 03/22/25 07:07 03/21/25 18:44 Range/Units White Blood Count 13.1 #H 4.8-10.8 K/uL Red Blood Count 4.79 4.00-5.50 MIL/uL Hemoglobin 11.8 L 12.0-16.0 g/dL Hematocrit 36.3 36-48 % Mean Corpuscular Volume 75.8 L 79-99 fL Mean Corpuscular Hemoglobin 24.6 L 27.0-33.0 pg Mean Corpuscular Hemoglobin Concent 32.5 32.0-36.0 g/dL Red Cell Distribution Width 16.7 H 11.0-15.5 % Platelet Count 216 130-400 K/uL Mean Platelet Volume 11.1 H 7.5-10.5 fL Nucleated Red Blood Cells 0.0 0.0-0.19 % Sodium Level 136 136-145 mmol/L Potassium Level 4.2 3.5-5.1 mmol/L Chloride Level 101 101-111 mmol/L Carbon Dioxide Level 21 21-32 mmol/L Blood Urea Nitrogen 9 7-18 mg/dL Creatinine 0.8 0.5-1.0 mg/dL Glomerular Filtration Rate Calc 104 >90 mL/min Random Glucose 126 H 70-105 mg/dL Total Calcium 9.3 8.5-10.1 mg/dL Phosphorus Level 4.5 2.5-4.9 mg/dL Magnesium Level 1.40 L 1.80-2.40 mg/dL Whole Blood Glucose 117 H 70-110 MG/DL Hemoglobin A1c 5.5 4.0-6.0 % Estimated Average Glucose (eAG) 111 70-126 mg/dL Ionized Calcium 1.21 1.15-1.33 MMOL/L Thyroid Stimulating Hormone (TSH) 1.83 0.36-3.74 uIU/mL Urine Color YELLOW YELLOW Urine Appearance CLEAR CLEAR Urine pH 6.0 5.0-8.0 Urine Specific [place] OVER 1.001-1.031 Urine Protein NEGATIVE NEGATIVE mg/dL Urine Glucose (UA) >=1000 H NEGATIVE mg/dL Urine Ketones NEGATIVE NEGATIVE mg/dL Urine Occult Blood +- (TRACE) H NEGATIVE Urine Nitrate NEGATIVE NEGATIVE Urine Bilirubin NEGATIVE NEGATIVE mg/dL Urine Urobilinogen 0.2 0.2-1.0 mg/dL Urine Leukocyte Esterase 25 H NEGATIVE Rubens/uL Urine RBC 11-25 H 0-1 /HPF Urine WBC 11-25 H 0-1 /HPF Urine Squamous Epithelial Cells FEW 0-2 /HPF Urine Bacteria RARE None Seen /HPF Urine Yeast FEW None Seen /HPF Urine HCG, Qualitative NEGATIVE NEGATIVE Test 03/21/25 18:42 Range/Units Immature Granulocyte % (Auto) 0.5 0-1 % Neutrophils (%) (Auto) 66.1 40.0-77.0 % Lymphocytes (%) (Auto) 23.2 21.0-51.0 % Monocytes (%) (Auto) 7.9 3.0-13.0 % Eosinophils (%) (Auto) 2.0 0.0-8.0 % Basophils (%) (Auto) 0.3 0.0-5.0 % Neutrophils # (Auto) 7.8 H 1.8-7.7 K/uL Lymphocytes # (Auto) 2.7 1.0-4.8 K/uL Monocytes # (Auto) 0.9 0.1-1.0 K/uL Eosinophils # (Auto) 0.23 0.00-0.70 K/uL Basophils # (Auto) 0.03 0.00-0.20 K/uL Absolute Immature Granulocyte (auto 0.06 0-1 K/uL Red Blood Cell Morphology See comments Total Bilirubin 0.8 0.2-1.0 mg/dL Direct Bilirubin 0.2 0.0-0.3 mg/dL Aspartate Amino Transf (AST/SGOT) 11 10-37 U/L Alanine Aminotransferase (ALT/SGPT) 19 12-78 U/L Alkaline Phosphatase 80 50-136 U/L Total Protein 7.6 6.0-8.3 g/dL Albumin 3.5 3.5-5.0 g/dL Lipase 33 16-77 U/L Current Medications Medications (Trade) Dose Ordered Sig/Carlos Route PRN Reason Start Time Stop Time Status Last Admin Dose Admin Acetaminophen (TYLenol 325MG TAB) 650 mg Q6H PRN PO FEVER/MILD PAIN LEVEL 1-3 03/22/25 02:00 04/21/25 01:59 Acetaminophen (TYLenol 650MG SUPPOSITORY) 650 mg Q6H PRN RC FEVER / MILD PAIN 1-3 IF NPO 03/22/25 02:00 04/21/25 01:59 Acetaminophen/ Hydrocodone Bitart (NORco 5/325MG) 1 tab Q6H PRN PO MODERATE PAIN (4-6) 03/22/25 06:30 03/27/25 06:29 03/23/25 08:23 1 TAB Acetaminophen/ Hydrocodone Bitart (NORco 5/325MG) 2 tab Q6H PRN PO SEVERE PAIN (7-10) 03/22/25 07:00 03/27/25 06:59 03/22/25 22:30 2 TAB Acetaminophen/ Hydrocodone Bitart (NORco 5/325MG) FOR MODERATE PAIN SC... Q6H PRN PO PAIN 4-10 03/22/25 02:00 03/22/25 06:29 DC Dextrose (D50w) 50 ml AD PRN IV HYPOGLYCEMIA PROTOCOL 03/22/25 02:00 04/21/25 01:59 Ergocalciferol (Drisdol) 50,000 unit QWEEK PO 03/28/25 09:00 04/27/25 08:59 Glucagon (Glucagon 1mg Kit) 1 mg AD PRN IM HYPOGLYCEMIA PROTOCOL 03/22/25 02:00 04/21/25 01:59 Home Med (Home Medication) ([Iron] 1 TAB) DAILY PO 03/22/25 09:00 04/21/25 08:59 Home Med (Home Medication) ([Vit C] 1 TAB) DAILY PO 03/22/25 09:00 04/21/25 08:59 Home Med (Home Medication) 2 each BID PO 03/22/25 21:00 04/21/25 20:59 Insulin Human Regular (humuLIN R 100 UNIT/ML 3ML) INSULIN SLIDING SCAL... Q12H9 SQ 03/22/25 09:00 03/22/25 06:28 DC Insulin Human Regular (humuLIN R 100 UNIT/ML 3ML) INSULIN SLIDING SCAL... Q6H6 SQ 03/22/25 06:30 04/21/25 08:59 Ketorolac Tromethamine (toRADol) 15 mg ONCE IM 03/21/25 20:00 03/21/25 23:59 DC 03/21/25 22:02 15 MG Labetalol HCl (TRANdate 20MG SYG) 10 mg Q2H PRN IV SBP GREATER THAN 180 03/22/25 02:00 04/21/25 01:59 Lactated Ringer's 1,000 ml @ 100 mls/hr Q10H IV 03/22/25 02:00 04/21/25 01:59 03/23/25 03:27 100 MLS/HR Lisinopril (Prinivil 20mg) 20 mg DAILY PO 03/22/25 09:00 04/21/25 08:59 03/23/25 08:24 20 MG Magnesium Sulfate 50 ml @ 0 mls/hr PROTOCOL IV 03/22/25 13:00 04/21/25 12:59 03/23/25 05:55 25 MLS/HR Magnesium Sulfate 50 ml @ 0 mls/hr PROTOCOL PRN IV MAGNESIUM PROTOCOL 03/22/25 02:00 03/22/25 12:33 DC Morphine Sulfate (morPHINE 4MG SYG) 4 mg Q4H PRN IVP SEVERE PAIN (7-10) 03/22/25 02:00 03/29/25 01:59 03/22/25 06:00 4 MG Ondansetron HCl (zoFRAN 4MG INJ) 4 mg Q6H PRN IVP NAUSEA/VOMITING 03/22/25 02:00 04/21/25 01:59 03/23/25 05:24 4 MG Piperacillin Sod/ Tazobactam Sod (Zosyn 3.375gm+NS 50ml) 3.375 gm Q8H IVPB 03/22/25 08:00 03/22/25 08:03 DC Piperacillin Sod/ Tazobactam Sod (Zosyn 3.375gm+NS 50ml) 3.375 gm Q8H IVPB 03/22/25 09:00 04/01/25 08:59 03/23/25 08:24 3.375 GM Potassium Chloride 100 ml @ 50 mls/hr AD PRN IV POTASSIUM PROTOCOL 03/22/25 02:00 04/21/25 01:59 Sodium Chloride (NS 50ml) 50 ml AD IV 03/22/25 08:00 8/12/25 06:29 DC Temazepam (restORIL 15 MG CAP) 15 mg HS PRN PO INSOMNIA/SLEEP 03/22/25 02:00 04/21/25 01:59 DIAGNOSTICS / RADIOLOGY: [ ] ASSESSMENT: Tachycardia suspicious for PE not poa Complex solid cystic structures in the bilateral adnexa with preserved vascularity, per sono on 03/21/2025 Acute enteritis, per CT on 03/21/2025 (Mildly dilated and fluid-filled distal small bowel loops with adjacent mesenteric edema and trace free fluid in RLQ of the abdomen, with a maximum diameter of 2.6 cm) Acute complicated cystitis, POA Acute abdominal pain 2/2 above, POA, r/o bowel obstruction Leukocytosis, POA Anemia Diabetes mellitus with hyperglycemia Glucosuria, occult hematuria, per UA on 03/21/2025 Hypertension Endometrial cancer, POA Electrolyte derangement magnesemia PLAN: Given to the patient Endometrial caner on oral chemotherapy; susceptible for blo od clots: will get d dimer, and venous doppler bilateral lower ext. labs: WBC trending up: afebrile. urine cultures in process Imaging MRI pelvis and abdomen: will follow up with her oncologist DR Cox upon discharged. -Admit to Medical floor. -continue Zosyn 3.375 q.8 hours leukocytosis went up 13afebrile --Hep-Lock Imaging: MR of abdomen and pelvis with and without contrast.noted -Follow urine cultures CFU less [place] [id number] -Glucometer checks AC & HS needed with insulin regular sliding scale coverage as needed. - Monitor renal and liver function. -Monitor electrolytes and treat accordingly PRN. Repeat magnesium at 2:00 p.m. -Monitor respiratory status. -Oxygen therapy as needed. Titrate oxygen prn to keep Spo2>/+=92%. -Blood pressure checks every 4 hours and as needed. -AM labs. -GI and DVT prophylaxis -Further plan/orders per hospitalization course. ATTESTATION BY PHYSICIAN I have seen and examined the patient. I reviewed the documentation, medical decision making, and treatment plan as noted by the mid-level provider above. I agree with the findings and plan of care. SHELBY YIN MD, ELIZABETH NP Mar 23, 2025 09:28
--- NOTE | 2025-03-23 10:30 | HMCIMG ---
EXAM: MR Abdomen with and without Intravenous Contrast. CLINICAL HISTORY: Patient presents with intractable abdominal pain and history of uterine carcinoma. TECHNIQUE: Multisequence, multiplanar magnetic resonance images of the abdomen with and without intravenous contrast. CONTRAST: Not specified. COMPARISON: 03/21/2025. FINDINGS: LOWER THORAX: No pleural effusion. LIVER: Mild hepatomegaly; right hepatic lobe measures up to 19.2 cm in craniocaudal dimension. Hepatic steatosis present. Trace perihepatic free fluid. GALLBLADDER AND BILE DUCTS: No gallstones. No biliary ductal dilatation. PANCREAS: Unremarkable. SPLEEN: Mild splenomegaly, measuring 13.7 cm. Trace perisplenic free fluid. ADRENALS: Unremarkable. KIDNEYS: Normal morphology. No hydronephrosis or mass. STOMACH AND BOWEL: No bowel obstruction. LYMPH NODES: No abdominal lymphadenopathy. VASCULATURE: Incidental retroaortic left renal vein. No abdominal aortic aneurysm. IMPRESSION: Mild hepatomegaly with diffuse steatosis. Mild splenomegaly. Trace perihepatic, perisplenic, and right lower quadrant free fluid. Mild ascites. RECOMMENDATION: Correlate with clinical and laboratory parameters. /[place]
--- NOTE | 2025-03-23 11:11 | HMCIMG ---
EXAM: MR Pelvis with and without Intravenous Contrast. CLINICAL HISTORY: Patient presents with complex cystic masses in bilateral ovaries and history of uterine carcinoma. TECHNIQUE: Multisequence, multiplanar magnetic resonance images of the pelvis with and without intravenous contrast. CONTRAST: IV. COMPARISON: 03/21/2025. FINDINGS: BOWEL: Grossly unremarkable within the pelvis. BLADDER: Normal morphology. No calculi. REPRODUCTIVE: A 16.6 ??? 11.5 ??? 12.4 cm well-defined multiloculated predominantly cystic lesion in the right adnexa with adjacent fat stranding. Most locules contain fluid-fluid levels with dependent T2-weighted hypointense components; some locules contain T1 hyperintense contents. No normal ovary is visualized on either side. Uterus mildly displaced to the left due to mass effect. Endometrial thickness measures 18 mm. No differentially enhancing uterine lesion. LYMPH NODES: No pelvic lymphadenopathy. BONES: No acute fracture or aggressive osseous lesion. PERITONEUM: Mild pelvic ascites. IMPRESSION: Large multiloculated complex cystic right adnexal lesion with mixed signal characteristics and fat stranding, likely of ovarian origin, possibility of ovarian epithelial neoplasm, (serous or mucinous cystadenocarcinoma) to be considered. No normal ovary is visualized on either side. Mild pelvic ascites. Mild leftward displacement of the uterus with increased endometrial thickness (18 mm). RECOMMENDATION: Recommend PET-CT for staging and characterization, with correlation to tumor markers (CA-125, CEA, HE4). /[place]
[2025-03-23 11:49] VITALS: BP 116/61; PULSE 93; RESP 18; TEMP 98.3
[2025-03-23 16:00] VITALS: BP 108/59; PULSE 109; RESP 18; TEMP 98.7
--- NOTE | 2025-03-23 17:21 | NUR ---
CT ANGIO ON HOLD, KRYSTEN KINGSLEY PT WANTS TO WAIT UNTIL TALKS TO ORDERING DRNancy WILL CALL BACK IF ANYTHING CHANGES.
--- NOTE | 2025-03-23 18:49 | NUR ---
PATIENT LEFT AMA PATIENT WANTED TO SPEAK TO DR BECAUSE SHE HAD TO GO BACK HOME AND SHE DID NOT WANT TO WAIT FOR RESULTS IF NOT NECESSARY. DR YIN WENT IN AND SPOKE TO PATIENT ABOUT THE IMPORTANCE OF THE EXAMS HE ORDERED AND WHY SHE SHOULD STAY IN THE HOSPITAL AND NOT LEAVE AMA. PATIENT VERBALIZED UNDERSTANDING AND THOUGHT IT OVER AND SHE WOULD RATHER LEAVE AMA. CHARGE NURSE WAS MADE AWARE. PATIENT SIGNED AMA FORM AND WAS PLACED IN CHART.
[2025-03-28] MEDS ORDERED: ERGOCALCIFEROL (VITAMIN D2) 50,000 UNIT CAPSULE PO SCH (09:00)
== END 2025-03-23 18:45 | disposition left against medical advice (07) | DRG 690 ==
LOC: EDH 17:17 → EDHIP 03-22 01:22 → 3CH 03-22 03:31
PROVIDERS: ADMIT Internal Medicine; ATTEND Internal Medicine
DX: N30.00 Acute cystitis without hematuria (principal); K52.9 Noninfective gastroenteritis and colitis, unspecified; R60.9 Edema, unspecified; D64.9 Anemia, unspecified; E11.65 Type 2 diabetes mellitus with hyperglycemia; C54.1 Malignant neoplasm of endometrium; K59.00 Constipation, unspecified; I10 Essential (primary) hypertension; Z53.29 Procedure and treatment not carried out because of patient's decision for other reasons; R00.0 Tachycardia, unspecified; Z80.0 Family history of malignant neoplasm of digestive organs; Z80.3 Family history of malignant neoplasm of breast; Z85.42 Personal history of malignant neoplasm of other parts of uterus; Z79.4 Long term (current) use of insulin
CPT/HCPCS: 36415; 72197; 74177; 74183; 76856; 80048; 80076; 81001; 81025; 82330; 82948; 83036; 83690; 83735; 84100; 84443; 85025; 85027; 85378; 87040; 87086; 96365; 99285; G0378; J0696; J1885; J2270; J2405; J2543; J3360; J3475; J7120; Q9967; A9575